=== PATIENT | male | born 1985 | race African-American/Black ===

== ENCOUNTER 2019-10-08 12:28 | Emergency (ER) | payer OTHER ==
[~2019-10-08] VITALS: Ht 182.9 cm; Wt 81.6 kg
[2019-10-08 13:06] VITALS: BP 134/81
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
[2019-10-08 14:30] VITALS: BP 130/82
== END 2019-10-08 14:31 | disposition home or self-care (01) ==
LOC: EMR 13:48
DX: Z76.89 Persons encountering health services in other specified circumstances (principal)
CPT/HCPCS: 99281